=== PATIENT | male | born 1995 | race Caucasian/White ===

== ENCOUNTER 2023-03-12 14:44 | Emergency (ER) | payer SELFPAY ==
[2023-03-12 14:52] VITALS: BP 152/93; PULSE 78; RESP 18; TEMP 37.2; O2SAT 100; BMI 23.9
== END 2023-03-12 17:36 | disposition left against medical advice (07) ==
PROVIDERS: Emergency Provider Emergency Medicine
DX: Z53.21 Procedure and treatment not carried out due to patient leaving prior to being seen by health care provider (principal)